=== PATIENT | female | born 1950 | race Caucasian/White ===

== ENCOUNTER → 2016-10-02 07:31 | Outpatient (CLI) | payer MEDICARE, BC ==
[2012-03-31 14:21] VITALS: BMI 31.9
[~2016-10-02 07:31] MED LIST: CYMBALTA60 MG PO; ESTRACE 0.5 MG0.5 MG PO; FLAGYL500 MG PO; MORPHINE IMMEDI15 MG PO; MORPHINE SULFAT15 M4 PO; NEURONTIN 400400 MG PO; NEURONTIN800 MG PO; TENORMIN25 MG PO; XANAX1 MG PO; ZOCOR80 MG PO
[2016-10-03 12:57] VITALS: BMI 26.6
== END | disposition home or self-care (01) ==
LOC: D.CT 07:31
DX: J18.9 Pneumonia, unspecified organism (principal)

== ENCOUNTER 2016-10-03 08:58 | Inpatient (IN) | payer MEDICARE, BC ==
[~2016-10-03] VITALS: Ht 160 cm; Wt 68.2 kg
[2016-10-03 09:30] LABS: BASOPHILS 0.1 % (0.0-2.0); EOSINOPHILS 1.7 % (0-7); HEMATOCRIT 46.4 % (36.0-48.0); HEMOGLOBIN 15.1 g/dL (12-16); IMMATURE GRANULOCYTES 0.3 % (0-5); MCH 29.5 pg (26.0-34.0); MCHC 32.5 g/dL (31.0-37.0); MCV 90.6 fL (80.0-100.0); MEAN PLATELET VOLUME 9.7 fL (7.4-10.4); MONOCYTES 6.6 % (2-11); NEUTROPHILS 73.3 % (40-80); PLATELET COUNT 339 10x3/uL (130-400); RBC 5.12 10x6/uL (4.00-5.40); RDW 14.5 % (11.5-14.5); WBC 16.6 10x3/uL (4.8-10.8)
[2016-10-03 10:00] LABS: ALBUMIN 2.7 g/dL (3.4-5.0); ALKALINE PHOSPHATASE 110 U/L (46-116); ALT (SGPT) 40 U/L (10-68); AMYLASE - SERUM 60 U/L (25-115); CALC OSMOLALITY 279 mosm/kg (275-300); CALCIUM 8.8 mg/dL (8.5-10.1); CARBON DIOXIDE 33.1 mmol/L (21.0-32.0); CHLORIDE - SERUM 102 mmol/L (98-107); CREATININE - SERUM 0.7 mg/dL (0.6-1.3); GLUCOSE 95 mg/dL (74-106); LIPASE 147 U/L (73-393); POTASSIUM - SERUM 4.5 mmol/L (3.5-5.1); PROTEIN - SERUM 6.7 g/dL (6.4-8.2); SODIUM 140 mmol/L (136-145); UREA NITROGEN 14 mg/dL (7-18); eGFR NON AFRICAN AMERICAN 89 mL/min (90-120)
[2016-10-03 10:07] LABS: C-REACTIVE PROTEIN < 0.2 mg/dL (0.0-0.9)
[2016-10-03 12:13] LABS: APPEARANCE CLEAR (CLEAR); BILIRUBIN NEGATIVE (NEGATIVE); COLOR YELLOW (YELLOW); GLUCOSE NEGATIVE (NEGATIVE); KETONE NEGATIVE (NEGATIVE); LEUKOCYTE ESTERASE NEGATIVE (NEGATIVE); NITRITE NEGATIVE (NEGATIVE); PROTEIN NEGATIVE (NEGATIVE); UROBILINOGEN NORMAL (NORMAL)
[2016-10-03 12:31] VITALS: BP 166/83
[2016-10-03 12:57] VITALS: BP 166/83; Ht 160 cm; Wt 68.2 kg
[2016-10-03] MEDS ORDERED: ESTRACE 0.5 MG0.5 MG PO (13:03)
[2016-10-03] MEDS ORDERED: FLAGYL500 MG PO (13:04)
[2016-10-03] MEDS ORDERED: MORPHINE SULFAT15 M4 PO (13:05)
[2016-10-03] MEDS ORDERED: XANAX1 MG PO (13:05)
[2016-10-03] MEDS ORDERED: MORPHINE IMMEDI15 MG PO (13:06)
[2016-10-03] MEDS ORDERED: TENORMIN25 MG PO (13:07)
[2016-10-03] MEDS ORDERED: NEURONTIN 400400 MG PO (13:08)
[2016-10-03] MEDS ORDERED: NEURONTIN800 MG PO (13:08)
[2016-10-03] MEDS ORDERED: ZOCOR80 MG PO (13:09)
[2016-10-03] MEDS ORDERED: CYMBALTA60 MG PO (13:09)
[2016-10-03 16:02] VITALS: BP 147/70
[2016-10-03 20:00] VITALS: BP 161/74
[2016-10-04] VITALS: BP 152/82
[2016-10-04 04:00] VITALS: BP 149/76
[2016-10-04 04:23] LABS: BASOPHILS 0.1 % (0.0-2.0); EOSINOPHILS 0.5 % (0-7); HEMATOCRIT 41.5 % (36.0-48.0); HEMOGLOBIN 13.5 g/dL (12-16); IMMATURE GRANULOCYTES 0.3 % (0-5); LYMPHOCYTES 15.5 % (15-50); MCH 28.9 pg (26.0-34.0); MCHC 32.5 g/dL (31.0-37.0); MCV 88.9 fL (80.0-100.0); MEAN PLATELET VOLUME 9.6 fL (7.4-10.4); MONOCYTES 6.7 % (2-11); NEUTROPHILS 76.9 % (40-80); PLATELET COUNT 305 10x3/uL (130-400); RBC 4.67 10x6/uL (4.00-5.40); RDW 14.7 % (11.5-14.5); WBC 14.9 10x3/uL (4.8-10.8)
[2016-10-04 04:46] LABS: ALBUMIN 2.4 g/dL (3.4-5.0); ALKALINE PHOSPHATASE 83 U/L (46-116); ALT (SGPT) 47 U/L (10-68); BILIRUBIN - TOTAL 0.41 mg/dL (0.2-1.3); CALC OSMOLALITY 282 mosm/kg (275-300); CARBON DIOXIDE 32.5 mmol/L (21.0-32.0); CHLORIDE - SERUM 107 mmol/L (98-107); CREATININE - SERUM 0.7 mg/dL (0.6-1.3); GLUCOSE 111 mg/dL (74-106); POTASSIUM - SERUM 4.4 mmol/L (3.5-5.1); PROTEIN - SERUM 5.9 g/dL (6.4-8.2); SODIUM 142 mmol/L (136-145); UREA NITROGEN 9 mg/dL (7-18); eGFR NON AFRICAN AMERICAN 89 mL/min (90-120)
[2016-10-04 08:09] VITALS: BP 169/83
[2016-10-04 12:12] VITALS: BP 138/63
[2016-10-04 15:48] VITALS: BP 161/78
[2016-10-04 20:00] VITALS: BP 157/74
[2016-10-05] VITALS: BP 136/60
[2016-10-05 04:00] VITALS: BP 143/76
[2016-10-05 05:38] LABS: BASOPHILS 0.2 % (0.0-2.0); HEMOGLOBIN 14.1 g/dL (12-16); IMMATURE GRANULOCYTES 0.2 % (0-5); LYMPHOCYTES 18.5 % (15-50); MCH 28.8 pg (26.0-34.0); MCV 89.8 fL (80.0-100.0); MEAN PLATELET VOLUME 10.1 fL (7.4-10.4); MONOCYTES 7.5 % (2-11); NEUTROPHILS 72.6 % (40-80); PLATELET COUNT 335 10x3/uL (130-400); WBC 12.5 10x3/uL (4.8-10.8)
[2016-10-05 06:06] LABS: CALC OSMOLALITY 283 mosm/kg (275-300); CALCIUM 8.4 mg/dL (8.5-10.1); CARBON DIOXIDE 30.2 mmol/L (21.0-32.0); CHLORIDE - SERUM 108 mmol/L (98-107); CREATININE - SERUM 0.7 mg/dL (0.6-1.3); GLUCOSE 95 mg/dL (74-106); POTASSIUM - SERUM 4.9 mmol/L (3.5-5.1); SODIUM 143 mmol/L (136-145); UREA NITROGEN 9 mg/dL (7-18); eGFR NON AFRICAN AMERICAN 89 mL/min (90-120)
[2016-10-05 08:30] VITALS: BP 120/66
[2016-10-05 12:54] VITALS: BP 121/51
[2016-10-05 17:00] VITALS: BP 128/64
[2016-10-05 20:44] VITALS: BP 116/55
[2016-10-06 04:00] VITALS: BP 125/71
[2016-10-06 05:34] LABS: BASOPHILS 0.2 % (0.0-2.0); EOSINOPHILS 1.3 % (0-7); HEMATOCRIT 44.4 % (36.0-48.0); HEMOGLOBIN 14.2 g/dL (12-16); IMMATURE GRANULOCYTES 0.3 % (0-5); LYMPHOCYTES 21.2 % (15-50); MCH 28.9 pg (26.0-34.0); MCV 90.2 fL (80.0-100.0); MONOCYTES 7.3 % (2-11); NEUTROPHILS 69.7 % (40-80); PLATELET COUNT 326 10x3/uL (130-400); RBC 4.92 10x6/uL (4.00-5.40); RDW 14.9 % (11.5-14.5); WBC 11.3 10x3/uL (4.8-10.8)
[2016-10-06 05:45] LABS: ANION GAP 9.1 mmol/L (8-16); CALCIUM 8.7 mg/dL (8.5-10.1); CARBON DIOXIDE 29.2 mmol/L (21.0-32.0); POTASSIUM - SERUM 5.3 mmol/L (3.5-5.1)
[2016-10-06 06:00] LABS: CREATININE - SERUM 0.9 mg/dL (0.6-1.3)
[2016-10-06 07:57] VITALS: BP 129/70
[2016-10-06 12:12] VITALS: BP 135/79
[2016-10-06 15:38] VITALS: BP 149/77
[2016-10-06 20:00] VITALS: BP 102/83
[2016-10-07] VITALS: BP 103/58
[2016-10-07 04:00] VITALS: BP 122/64
[2016-10-07 05:05] LABS: BASOPHILS 0.1 % (0.0-2.0); EOSINOPHILS 1.4 % (0-7); HEMATOCRIT 43.6 % (36.0-48.0); HEMOGLOBIN 14.2 g/dL (12-16); IMMATURE GRANULOCYTES 0.2 % (0-5); LYMPHOCYTES 17.8 % (15-50); MCH 29.3 pg (26.0-34.0); MCHC 32.6 g/dL (31.0-37.0); MCV 89.9 fL (80.0-100.0); MEAN PLATELET VOLUME 9.7 fL (7.4-10.4); NEUTROPHILS 71.5 % (40-80); PLATELET COUNT 308 10x3/uL (130-400); RBC 4.85 10x6/uL (4.00-5.40); RDW 14.9 % (11.5-14.5); WBC 12.9 10x3/uL (4.8-10.8)
[2016-10-07 05:16] LABS: CALC OSMOLALITY 278 mosm/kg (275-300); CALCIUM 8.5 mg/dL (8.5-10.1); CARBON DIOXIDE 32.2 mmol/L (21.0-32.0); CHLORIDE - SERUM 108 mmol/L (98-107); CREATININE - SERUM 0.8 mg/dL (0.6-1.3); GLUCOSE 105 mg/dL (74-106); POTASSIUM - SERUM 4.8 mmol/L (3.5-5.1); SODIUM 141 mmol/L (136-145); UREA NITROGEN 8 mg/dL (7-18); eGFR NON AFRICAN AMERICAN 76 mL/min (90-120)
--- NOTE | 2016-10-07 07:07 | HP ---
PATIENT: REYNA SILVA MEDICAL RECORD: [id number] ACCOUNT: [id number] LOCATION:[id number] : 52 ADMISSION DATE: 10/03/16 HISTORY AND PHYSICAL EXAMINATION HISTORY OF PRESENT ILLNESS: Reyna is a 66-year-old female seen in the office last week for cough and fever. At that time, she had just been a day out from an upper endoscopy and x-ray showed what appeared to be atelectasis in the right lung base, possible concern for aspiration pneumonia. We initially treated her with oral Levaquin. She had a normal sat at that time and has otherwise low-grade temperatures over the last couple of days, she has continued to run low temperatures. Cough is better. CT of the chest that was done yesterday showed a right lung base atelectasis, but she is not complaining of more pain in her mid to right low back and complaining of ongoing fever and weakness. She denies any dysuria, has had some nausea and some abdominal pain developed in the last couple of days as well. She has had a few Rocephin shots and had been on oral metronidazole as well. PAST MEDICAL HISTORY: Significant for chronic low back pain and spinal stenosis. She has chronic pain management. She also has history of hypertension, fibromyalgia, hyperlipidemia and vitamin D deficiency. HOME MEDICATIONS: Include aspirin, alprazolam p.r.n., atenolol, Bumex p.r.n., buspirone, duloxetine, estradiol, gabapentin, simvastatin, Imitrex and tizanidine. ALLERGIES: PENICILLIN, WHICH CAUSES A RASH. FAMILY HISTORY: Father had lung disease. Mother had breast cancer. Brother with prostate cancer. HABITS: She does not smoke, use alcohol or drugs. PAST SURGICAL HISTORY: Includes cholecystectomy. She had a hernia repair in the past, skin cancer removal, hysterectomy. She had an EGD a couple of weeks ago with Dr. Stuart. REVIEW OF SYSTEMS: HEENT: No visual or auditory changes. No sore throat, rhinorrhea, dysphagia. CONSTITUTIONAL: With low-grade temperature and weakness. GASTROINTESTINAL: Some abdominal pain and nausea. PULMONARY: Cough, which is a little bit better with some shortness of breath. Denies any chest pain or palpitations. Does complain of some back discomfort in the mid to lower back. Denies any palpitations. GENITOURINARY: No dysuria or frequency. PHYSICAL EXAMINATION: VITAL SIGNS: Today, temperature was 99.1, pulse 78, respirations 16, O2 sat 98% room air, blood pressure ____. HEENT: Unremarkable. NECK: Supple. No JVD or adenopathy. HEART: S1, S2. No murmur or rubs. LUNGS: Clear with no rhonchi, rales or wheezes. Decreased breath sounds at right lung base. ABDOMEN: Soft, tender in the midepigastrium to palpation. No rebound, guarding HISTORY AND PHYSICAL [id number] WEEKS,REYNA or rigidity. Normoactive bowel sounds. EXTREMITIES: Had no clubbing, cyanosis, or edema. LABORATORY DATA: White count was 15,000. PLAN: At this point with ongoing leukocytosis and fever as well as with development of new flank pain and abdominal pain, we are going to admit the patient, put her on broad-spectrum antibiotics. Consult ID and GI. I do not think this is related necessarily to her EGD. So certainly could have had some component of aspiration pneumonia, although there is no evidence for that on CT. We will continue to treat for that as the possibility, we are going to get blood and urine cultures and continue supportive care. TRANSINT:[id number] Voice Confirmation ID: [id number] DOCUMENT ID: [id number] GILBERTO JO DO at 0707 CC: [id number] DICTATION DATE: 10/03/16 1003 COMPUTING SYSTEMS MECHANIC: 10/03/16 1355 ADM IN [place] [id number] [place] [address]
[2016-10-07 08:07] VITALS: BP 154/81
[2016-10-07 12:30] VITALS: BP 106/45
[2016-10-07 15:46] VITALS: BP 106/47
[2016-10-07 20:00] VITALS: BP 109/58
[2016-10-08] VITALS: BP 110/66
[2016-10-08 04:00] VITALS: BP 112/55
[2016-10-08 05:36] LABS: BASOPHILS 0.1 % (0.0-2.0); EOSINOPHILS 2.3 % (0-7); HEMATOCRIT 41.1 % (36.0-48.0); IMMATURE GRANULOCYTES 0.3 % (0-5); LYMPHOCYTES 18.3 % (15-50); MCH 29.3 pg (26.0-34.0); MCHC 31.6 g/dL (31.0-37.0); MEAN PLATELET VOLUME 9.9 fL (7.4-10.4); PLATELET COUNT 291 10x3/uL (130-400); RBC 4.44 10x6/uL (4.00-5.40); RDW 15.2 % (11.5-14.5); WBC 9.9 10x3/uL (4.8-10.8)
[2016-10-08 05:40] LABS: MCV 92.6 fL (80.0-100.0)
[2016-10-08 05:49] LABS: CALC OSMOLALITY 282 mosm/kg (275-300); CALCIUM 8.3 mg/dL (8.5-10.1); CARBON DIOXIDE 29.8 mmol/L (21.0-32.0); CHLORIDE - SERUM 109 mmol/L (98-107); CREATININE - SERUM 0.8 mg/dL (0.6-1.3); GLUCOSE 118 mg/dL (74-106); MAGNESIUM - SERUM 2.2 mg/dL (1.8-2.4); SODIUM 142 mmol/L (136-145); eGFR NON AFRICAN AMERICAN 76 mL/min (90-120)
[2016-10-08 05:50] LABS: UREA NITROGEN 11 mg/dL (7-18)
[2016-10-08 08:38] VITALS: BP 118/57
[2016-10-08 13:04] VITALS: BP 112/57
[2016-10-08 17:07] VITALS: BP 144/71
[2016-10-08 20:00] VITALS: BP 123/62
[2016-10-09] VITALS: BP 114/75; BP 170/82
[2016-10-09 04:00] VITALS: BP 143/70
[2016-10-09 08:40] VITALS: BP 111/51
== END 2016-10-09 08:50 | disposition home or self-care (01) | DRG 205 ==
LOC: D.MS 08:58
PROVIDERS: Family Medicine; ADMIT Family Medicine
DX: J95.89 Other postprocedural complications and disorders of respiratory system, not elsewhere classified (principal); J69.0 Pneumonitis due to inhalation of food and vomit; Y83.8 Other surgical procedures as the cause of abnormal reaction of the patient, or of later complication, without mention of misadventure at the time of the procedure; I10 Essential (primary) hypertension; K59.00 Constipation, unspecified; M79.7 Fibromyalgia; E78.5 Hyperlipidemia, unspecified; E55.9 Vitamin D deficiency, unspecified